=== PATIENT | female | born 1940 | race Caucasian/White ===

== ENCOUNTER 2017-09-14 09:26 | Emergency (ER) | payer OTHER, MEDICARE ==
[~2017-09-14] VITALS: Ht 165.1 cm; Wt 95.3 kg
[~2017-09-14 09:26] MED LIST: BIOTIN2500 MCG PO; CALTRATE 600 +1 EACH PO; CIPRO 500MG TA500 MG PO; LEVOTHYROXIN0.075 M1 PO; LEVOTHYROXINE75 MCG PO; LISINOPRIL-HCT1 EAC2 PO; PERCOCET 325 MG1 TA2 PO; PRILOSEC OTC20 M1 PO; SIMVASTATIN20 M2 PO; SIMVASTATIN20 MG PO; TRIAMTERENE/HCT1 CAP PO; ZOFRAN ODT4 M1 PO
[2017-09-14 10:02] VITALS: BP 139/79
--- NOTE | 2017-09-14 11:38 | ED EYE COMPLAINT ---
History of Present Illness General Chief Complaint: Eye Problems Stated Complaint: RT EYE PAIN/ITCHY Source: patient Exam Limitations: no limitations Vital Signs & Intake/Output Vital Signs & Intake/Output Vital Signs Date Time Temp Pulse Resp B/P B/P Pulse O2 O2 Flow FiO2 Mean Ox Delivery Rate 09/14 1002 97.6 84 18 139/79 98 Room Air Room Air Allergies Coded Allergies: Sulfa (Sulfonamide Antibiotics) (HIVES 07/29/15) sulfadiazine (HIVES 07/29/15) sulfamethoxazole (From JANRA) (HIVES 07/29/15) trimethoprim (From ) (HIVES 07/29/15) Triage Note: PT TO ED WITH C/O RIGHT EYE ITCHING "I SWITCHED MAKEUP MAYBE IT'S THAT", ALSO C/O "MY NOSE IS DRIPPING, SAW DOCTOR LAST WEEK, GIVEN DROPS FOR IT. Triage Nurses Notes Reviewed? yes Onset: Abrupt Duration: day(s):, constant Timing: recent history Injury Environment: home Severity: moderate, severe No Modifying Factors: none HPI: 77-year-old female comes in the emergency room for evaluation of itchiness and redness. Symptoms ongoing over the past few days. She reports that she recently using new makeup on her face. She tried to get in with her primary care doctor and try calling an architectural wood model maker contacted and comes in for further evaluation. Denies any vision loss. denies any discharge. Denies any associated symptoms. (Joni Altamirano) Reconcile Medications Biotin (Unknown Strength) CAPSULE (Unknown Dose) PO DAILY SUPPLEMENT ( Reported) Calcium Carbonate/Vitamin D3 (Caltrate 600 + D Tablet) (Unknown Strength) TABLET (Unknown Dose) PO DAILY SUPPLEMENT (Reported) Levothyroxine Sodium 75 MCG TABLET 1 TAB PO DAILY THYROID (Reported) Lisinopril/Hydrochlorothiazide (Lisinopril-Hctz 10-12.5 MG Tab) 1 EACH TABLET 1 TAB PO DAILY BP (Reported) Moxifloxacin HCl (Moxeza) 0.5 % DROPS.VISC 1 GTT OPH BID blepharitis Omeprazole Magnesium (Prilosec Otc) 20 MG TABLET.DR 1 TAB PO DAILY HEARTBURN (Reported) Ondansetron (Zofran Odt) 4 MG TAB.RAPDIS 1 TAB PO Q6 PRN NAUSEA Prednisone 10 MG TABLET 1 TAB PO DAILY ALLERGIC REACTION Simvastatin (Simvastatin*) 20 MG TABLET 1 TAB PO DAILY CHOLESTEROL (Reported) (Daron CABALLERODon) Past History Travel History Traveled to [place] past 21 day No Medical History Any Pertinent Medical History? see below for history Neurological: NONE EENT: NONE Cardiovascular: hyperlipidemia Respiratory: NONE Gastrointestinal: NONE Hepatic: NONE Renal: NONE Musculoskeletal: NONE Psychiatric: NONE Endocrine: hypothyroidism Blood Disorders: NONE Cancer(s): colon/rectal cancer MASTER FISHER/Reproductive: NONE Surgical History Surgical History: non-contributory Psychosocial History Who do you live with Patient and family Services at Home None What is your primary language [place] Tobacco Use: Never used ETOH Use: denies use Illicit Drug Use: denies illicit drug use Family History Hx Contributory? No (Joni Altamirano) Review of Systems Review of Systems Constitutional: Reports: no symptoms. Eyes: Reports: see HPI. Ear: Reports: no symptoms. Nose: Reports: no symptoms. Mouth: Reports: no symptoms. Throat: Reports: no symptoms. Respiratory: Reports: no symptoms. Cardiovascular: Reports: no symptoms. GI: Reports: no symptoms. Genitourinary: Reports: no symptoms. Musculoskeletal: Reports: no symptoms. Skin: Reports: no symptoms. Neurological/Psychological: Reports: no symptoms. Hematologic/Endocrine: Reports: no symptoms. Immunologic/Allergic: Reports: no symptoms. All Other Systems: Reviewed and Negative (Joni Altamirano) Physical Exam General Appearance: well developed/nourished, mild distress General Inspection: normal inspection Eyelid: normal inspection Conjunctiva/Sclera: normal inspection Cornea: normal inspection EOM: intact Pupil: normal pupil, PERRL General Inspection: EYELID EDEMA Eyelid: edema, erythema Conjunctiva/Sclera: normal inspection Cornea: normal inspection EOM: intact Pupil: normal pupil, PERRL Physical Exam Head: atraumatic Nose: normal inspection Mouth/Throat: normal mouth inspection Neck: normal inspection, supple Cardiovascular/Respiratory: normal breath sounds, regular rate/rhythm Neurologic/Psych: awake, alert, oriented x 3, normal mood/affect Skin: intact, normal color, warm/dry (Joni Altamirano) Progress Differential Diagnosis: corneal abrasion, corneal foreign body, conjunctivitis, detached retina, glaucoma, globe rupture, retinal art./v. occlusion, BLEPHARITIS Plan of Care: 09/14/2017 1:18:15 PM Patient clinically looks well. Patient is in no apparent distress. Patient is nontoxic appearing. He is to follow-up with architectural wood model maker. Symptoms most consistent with blepharitis. Potential for a contact dermatitis so patient was started on a low-dose prednisone. Instructed to not use that makeup again. (Joni Altamirano) Departure Departure Disposition: HOME OR SELF CARE Condition: Stable Clinical Impression Primary Impression: Blepharitis Referrals: Kip HURT,Willis Ignacio (PCP/Family) Rodolfo HURT,Star Henry Additional Instructions: Use Polytrim drops as prescribed. Wash upper eyelid with baby shampoo. Wound compresses. The patient was prescribed. Follow-up with architectural wood model maker. Return immediately concerns. Please note that there might be incidental findings in your evaluation that are unrelated to the current emergency department visit. Please notify your primary care doctor about this emergency department visit in order to obtain and review all of the testing performed so that these incidental findings can be monitored as needed. If you had an x-ray performed, please understand that some fractures may not be seen on the initial set of x-rays. If your symptoms persist you might need a repeat set of x-rays to check for such a fracture. If you had a laceration evaluated, please understand that foreign bodies such as glass or wood may not be visible to the naked eye or on plain x-rays. If the wound becomes red, swollen, increasingly more painful or if there is any drainage from the wound, please have it reevaluated by a physician for the possibility of a retained foreign body. If you're unable to follow up as outlined in the discharge instructions please return to the emergency department. Thank you for choosing the [facility] for your care. It was a pleasure to serve you today. Departure Forms: Customer Survey General Discharge Information Prescriptions: Current Visit Scripts Moxifloxacin HCl (Moxeza) 1 GTT OPH BID #3 ML Prednisone 1 TAB PO DAILY #5 TAB (Joni Altamirano) PA/FACEPIECE LINE SUPERVISOR Co-Sign Statement Statement: ED Attending supervision documentation- [X] I saw and evaluated the patient. I have also reviewed all the pertinent lab results and diagnostic results. I agree with the findings and the plan of care as documented in the PA's/FACEPIECE LINE SUPERVISOR's documentation. [] I have reviewed the ED Record and agree with the PA's/FACEPIECE LINE SUPERVISOR's documentation. [] Additions or exceptions (if any) to the PAs/FACEPIECE LINE SUPERVISOR's note and plan are summarized below: [] (Don Neri DO)
[2017-09-14] MEDS ORDERED: MOXEZA3 ML OPH (11:40)
[2017-09-14] MEDS ORDERED: PREDNISONE10 M2 PO (11:40)
== END 2017-09-14 11:56 ==
LOC: ERH 09:26
DX: H01.003 Unspecified blepharitis right eye, unspecified eyelid (principal); H57.11 Ocular pain, right eye; L29.9 Pruritus, unspecified; E78.5 Hyperlipidemia, unspecified